=== PATIENT | male | born 1985 | race Caucasian/White ===

== ENCOUNTER 2019-05-08 09:35 | Day surgery (SDC) | payer BC ==
[2019-05-07 12:25] VITALS: BP 153/96
[~2019-05-08] VITALS: Ht 182.9 cm; Wt 113.9 kg
[~2019-05-08 09:35] MED LIST: EPINEPHRINE TOPICAL SOLN 1 MG/ML, 30ML ONE; FENTANYL PF 250 MCG/5ML ONE; MIDAZOLAM 1 MG/ML, 2ML ONE; No meds per pt.; ROPIvacaine/PF 0.5%, 30 ML ONE
[2019-05-08] MEDS ORDERED: LACTATED RINGERS 1,000 ML IV SCH (09:46)
[2019-05-08] MEDS ORDERED: SCOPOLAMINE PATCH, 1.5MG PATCH.TD72 TD ONE (10:00)
[2019-05-08] MEDS ORDERED: GABAPENTIN 300 MG CAPSULE PO ONE (10:00)
[2019-05-08] MEDS ORDERED: LIDOCAINE-MPF 1%, 2ML INFIL ONE (10:00)
[2019-05-08] MEDS ORDERED: ACETAMINOPHEN 500 MG TABLET PO ONE (10:00)
[2019-05-08] MEDS ORDERED: CEFAZOLIN 1,000 MG ONE (10:03)
[2019-05-08] MEDS ORDERED: PROPOFOL 10 MG/ML, 20ML ONE (10:03)
[2019-05-08] MEDS ORDERED: SUCCINYLCHOLINE 20 MG/ML, 10ML ONE (10:03)
[2019-05-08] MEDS ORDERED: DEXAMETHASONE 4 MG/ML, 1ML ONE (10:03)
[2019-05-08] MEDS ORDERED: ONDANSETRON 2MG/ML, 2ML ONE (10:03)
[2019-05-08] MEDS ORDERED: ROCURONIUM 10 MG/ML,10ML ONE (10:03)
[2019-05-08] MEDS ORDERED: PROMETHAZINE 25 MG/ML, 1ML IV PRN (11:00)
[2019-05-08] MEDS ORDERED: ALBUTEROL SULFATE 2.5 MG/3 ML NPPB PRN (11:00)
[2019-05-08] MEDS ORDERED: HYDROmorphone 1 MG/ML, 1ML INJ IV PRN (11:00)
[2019-05-08] MEDS ORDERED: LABETALOL 5MG/ML, 20ML IV PRN (11:00)
[2019-05-08] MEDS ORDERED: KETOROLAC 30 MG/1 ML IV PRN (11:00)
[2019-05-08] MEDS ORDERED: OXYcodone 5 MG/5 ML ORAL.SOL UDC PO PRN (11:00)
[2019-05-08] MEDS ORDERED: hydrALAzine 20 MG/ML, 1ML IV PRN (11:00)
[2019-05-08] MEDS ORDERED: METOCLOPRAMIDE 5 MG/ML, 2ML IV PRN (11:00)
[2019-05-08] MEDS ORDERED: ONDANSETRON 2MG/ML, 2ML IVPush PRN (11:00)
[2019-05-08] MEDS ORDERED: MEPERIDINE/PF 25MG/0.5ML IVPush PRN (11:00)
[2019-05-08] MEDS ORDERED: FENTANYL PF 100 MCG/2ML ONE (11:21)
[2019-05-08] MEDS ORDERED: OXYcodone 5 MG/5 ML ORAL.SOL UDC ONE (11:22)
[2019-05-08] MEDS: FENTANYL PF 100 MCG/2ML IV PRN ×2 (11:25→11:43)
== END 2019-05-08 13:00 | disposition home or self-care (01) ==
LOC: OUT 09:35
PROVIDERS: ATTEND Orthopaedic Surgery
DX: M87.051 Idiopathic aseptic necrosis of right femur (principal); M87.052 Idiopathic aseptic necrosis of left femur; F17.200 Nicotine dependence, unspecified, uncomplicated; Z72.89 Other problems related to lifestyle; Z79.891 Long term (current) use of opiate analgesic; Z79.899 Other long term (current) drug therapy
CPT/HCPCS: 73501; C1769; J0330; J0690; J1100; J2250; J2405; J2704; J2795; J3010; J7120; S2325; 76000